=== PATIENT | female | born 1940 | race Caucasian/White ===

== ENCOUNTER 2021-01-08 11:41 | Emergency (ER) | payer MEDICARE ==
[~2021-01-08] VITALS: Ht 162.6 cm; Wt 70.5 kg
[2021-01-08 12:57] LABS: BASOPHILS % (AUTO) 0.8 % (0.0-2.0); EOSINOPHILS % (AUTO) 2.2 % (1.0-6.0); HEMATOCRIT 40.1 % (36-46); HEMOGLOBIN 13.4 g/dL (12.0-16.0); LYMPHOCYTES # (AUTO) 1.2 K/uL (1.0-4.8); LYMPHOCYTES % (AUTO) 15.6 % (22.0-44.0); MEAN CORPUSCULAR HEMOGLOBIN 32.1 pg (26.0-34.0); MEAN CORPUSCULAR HGB CONC 33.3 G/dL (31.0-37.0); MEAN CORPUSCULAR VOLUME 96 fL (80-100); MONOCYTES # (AUTO) 0.6 K/uL (0.1-1.0); MONOCYTES % (AUTO) 7.3 % (2.0-9.0); NEUTROPHILS % (AUTO) 74.1 % (40.0-70.0); PLATELET COUNT (AUTO) 274 K/uL (150-450); RED BLOOD CELL COUNT(AUTO) 4.17 MIL/uL (4.00-5.20); RED CELL DISTRIBUTION WIDTH 13.9 % (11.5-14.5)
[2021-01-08 13:37] LABS: COVID AG,FIA SOURCE NASOPHARYNGEAL
[2021-01-08 13:51] LABS: CALCIUM, TOTAL 9.4 mg/dL (8.8-10.5); CREATININE 1.17 mg/dL (0.60-1.30); POTASSIUM 3.7 mmol/L (3.5-5.1)
[2021-01-08 13:58] LABS: ALBUMIN 2.6 g/dL (3.4-5.0); BILIRUBIN,TOTAL 0.8 mg/dL (0.1-1.0); TOTAL PROTEIN, SERUM 8.2 g/dL (6.4-8.2)
[2021-01-08 14:23] LABS: INFLUENZA TYPE A NEGATIVE FOR TYPE A (NEGATIVE)
[2021-01-08 14:24] LABS: INFLUENZA TYPE B NEGATIVE FOR TYPE B (NEGATIVE)
[2021-01-08 14:30] VITALS: BP 127/89
== END 2021-01-08 15:36 | disposition home or self-care (01) ==
LOC: EMS 11:41
DX: U07.1 COVID-19 (principal)
CPT/HCPCS: 36415; 71045; 80053; 83690; 84484; 85025; 87426; 87804; 93005; 99285; U0003